=== PATIENT | female | born 1935 | race Caucasian/White ===

== ENCOUNTER 2021-12-22 15:16 | Emergency (ER) | payer MEDICARE, OTHER ==
[~2021-12-22 15:16] MED LIST: ALPHAGAN 020 DROPS/M OS; ASPIRIN CHEWABL81 MG PO; BISOPROLOL FUMAR5 MG PO; LIVALO1 MG PO; XALATAN2.5 ML OD; otc vit
[2021-12-22 16:09] LABS: BILIRUBIN NEGATIVE (NEGATIVE); BLOOD 2+ Ery/uL (NEGATIVE); CLARITY CLEAR (CLEAR); COLOR YELLOW (YELLOW); GLUCOSE (U) NORMAL (NORMAL); LEUKOCYTES NEGATIVE Leu/uL (NEGATIVE); NITRITE NEGATIVE (NEGATIVE); PROTEIN NEGATIVE (NEGATIVE); UROBILINOGEN 0.2 mg/dL (0.2-1.0)
[2021-12-22 16:18] LABS: URINARY WBC RARE
[2021-12-22 16:20] LABS: BASOPHIL 0.2 % (0-2); EOSINOPHIL 0 % (0-7); HCT 42.2 % (37.0-47.0); HGB 14.3 g/dl (12.5-16.0); LYMPHOCYTE 23.1 % (15-48); MCHC 33.9 g/dL (32.0-36.0); MCV 88.7 fL (78.0-100.0); MONOCYTE 8.1 % (0-12); NEUTROPHIL 68.2 % (41-80); NRBC 0; PLT 207 K/uL (150-400); RBC 4.76 M/uL (4.20-5.40); RDW 12.4 % (11.5-14.0); WBC 4.8 K/uL (4.0-10.5)
[2021-12-22 16:38] LABS: INFLUENZA A NAA NEGATIVE (NEGATIVE)
[2021-12-22 16:43] LABS: CORONAVIRUS 2019 SARS-COV-2 POSITIVE (NEGATIVE)
[2021-12-22 17:34] LABS: CREATININE 0.64 mg/dL (0.51-0.95); POTASSIUM 3.4 mmol/L (3.5-5.1)
== END 2021-12-22 17:48 | disposition home or self-care (01) ==
LOC: FER 15:16
PROVIDERS: Nurse Practitioner Family
DX: U07.1 COVID-19 (principal); R31.9 Hematuria, unspecified; R53.1 Weakness; I25.10 Atherosclerotic heart disease of native coronary artery without angina pectoris; I10 Essential (primary) hypertension; Z88.1 Allergy status to other antibiotic agents; Z88.8 Allergy status to other drugs, medicaments and biological substances
CPT/HCPCS: 36415; 71045; 80048; 81001; 85025; U0002